=== PATIENT | female | born 1985 | race Caucasian/White ===

== ENCOUNTER 2016-03-26 12:08 | Emergency (ER) | payer OTHER ==
[~2016-03-26] VITALS: Ht 162.6 cm; Wt 51.3 kg
[~2016-03-26 12:08] MED LIST: 12 HOUR DECONG120 M1 PO; ALBUTEROL SULF8.5 GM IH; AMBIEN5 MG PO; BACLOFEN10 MG PO; BENADRYL25 MG PO; BIRTH CONTROL PO; DAY TIME COLD-177 ML PO; DOCUSATE SODIU100 MG PO; ENDOCET 5-3251 EACH PO; ESCITALOPRAM OX10 MG PO; FLEXERIL10 MG PO; FLINTSTONES CO1 EAC1 PO; HYDROXYZINE HCL50 MG PO; IBUPROFEN800 MG PO; IRON325 M1 PO; LIDODERM 5% P1 PATCH TD; LO-DOSE ASPIRIN81 M1 PO; LORAZEPAM0.5 MG PO; LORTAB 5-325 M1 EACH PO; MEDROL DOSEPAK4 MG PO; MELOXICAM15 MG PO; MOBIC15 MG PO; MONONESSA1 EACH PO; Motrin PO; NAPROXEN500 MG PO; NOHOMEMEDS; NYQUIL D COLD295 ML PO; OMEPRAZOLE40 M1 PO; PERCOCET 10/1 TABLET PO; PERCOCET 5/31 TABLET PO; PRENATAL COMPL1 EACH PO; PRENATAL TABLE1 EAC3 PO; PRILOSEC OTC20 M1 PO; PRILOSEC10 MG PO; PROMETHAZINE12.5 M1 PO; ROBITUSSIN COU237 ML PO; SODIUM CHLORIDE1 G1 PO; TESSALON200 MG PO; TYLENOL EXTRA500 MG PO; VENTOLIN HFA18 GM IH; ZOFRAN4 MG PO; Zofran PO
[2016-03-26] MEDS ORDERED: CLONAZEPAM1 MG PO (12:21)
[2016-03-26] MEDS ORDERED: VENTOLIN HFA18 GM IH (12:21)
[2016-03-26] MEDS ORDERED: SERTRALINE HCL50 MG PO (12:21)
[2016-03-26] MEDS ORDERED: ATARAX,VISTARIL50 MG PO (12:38)
[2016-03-26 13:15] VITALS: BP 153/93
== END 2016-03-26 13:16 | disposition home or self-care (01) ==
LOC: EME 12:08
DX: F41.1 Generalized anxiety disorder (principal); Z87.891 Personal history of nicotine dependence
CPT/HCPCS: 99281; 99283; Q0177

== ENCOUNTER 2016-03-28 23:42 | Emergency (ER) | payer OTHER ==
[~2016-03-28] VITALS: Ht 162.6 cm; Wt 50.8 kg
[~2016-03-28 23:42] MED LIST changes: +ATARAX,VISTARIL50 MG PO; +CLONAZEPAM1 MG PO; +SERTRALINE HCL50 MG PO
[2016-03-29] MEDS ORDERED: DAILY VALUE1 EACH PO (01:09)
[2016-03-29 01:16] LABS: HEMATOCRIT 36.4 % (36.0-46.0); MCH 30.2 PG (29.0-34.0); MCV 91.7 FL (83-99); MEAN PLAT.VOLUME 9.4 uM^3 (9.5-12.4); PLATELET COUNT 272 K/uL (156-360); RBC DIS.WIDTH-CV 15.2 % (11.8-14.6); RBC DIS.WIDTH-SD 49.6 % (39-53); RED BLOOD COUNT 3.97 M/uL (3.80-5.20); WHITE BLOOD COUNT 9.4 K/uL (4.1-10.2)
[2016-03-29 01:30] LABS: CHLORIDE 104 mEq/L (99-109); POTASSIUM 4.3 mEq/L (3.7-5.4); SODIUM 141 mEq/L (136-147)
[2016-03-29 01:32] LABS: GLUCOSE 120 mg/dL (70-99)
[2016-03-29 01:33] LABS: ANION GAP 12 MEQ/L (2-14)
[2016-03-29 01:36] LABS: GFR ESTIMATE (CALCULATED) > 59 mL/min/
[2016-03-29 01:37] LABS: UREA NITROGEN (BUN) 21 mg/dL (9-23)
[2016-03-29 01:38] LABS: CREATINE KINASE 18 IU/L (1-294)
[2016-03-29 01:44] LABS: QUANTITATIVE HCG < 4.0 MIU/ML
[2016-03-29] MEDS ORDERED: NAPROSYN500 MG PO (02:24)
[2016-03-29 02:35] VITALS: BP 110/52
== END 2016-03-29 02:40 | disposition home or self-care (01) ==
LOC: EME 23:42 → RME 23:42
PROVIDERS: Physician Assistant
DX: M79.7 Fibromyalgia (principal); Z87.891 Personal history of nicotine dependence
CPT/HCPCS: 80048; 82550; 84702; 85027; 99281; 99284; J1885

== ENCOUNTER 2016-05-18 02:25 | Emergency (ER) | payer OTHER ==
[~2016-05-18] VITALS: Ht 162.6 cm; Wt 51.1 kg
[~2016-05-18 02:25] MED LIST changes: +DAILY VALUE1 EACH PO; +NAPROSYN500 MG PO
[2016-05-18] MEDS ORDERED: ZOLOFT50 MG PO (02:44)
[2016-05-18] MEDS ORDERED: XANAX1 MG PO (02:44)
[2016-05-18] MEDS ORDERED: ALPRAZOLAM1 MG PO (02:48)
[2016-05-18] MEDS ORDERED: ROPINIROLE HCL1 MG PO (02:49)
[2016-05-18 03:14] VITALS: BP 118/90
[2016-05-18] MEDS ORDERED: ULTRACET1 TABLET PO (17:20)
[2016-05-18] MEDS ORDERED: INDOCIN50 MG PO (17:20)
[2016-05-18] MEDS ORDERED: VALIUM2 MG PO (17:20)
== END 2016-05-18 03:21 | disposition home or self-care (01) ==
LOC: EME 02:25
DX: F41.1 Generalized anxiety disorder (principal); T43.506A Underdosing of unspecified antipsychotics and neuroleptics, initial encounter; Z91.14 Patient's other noncompliance with medication regimen; Z87.891 Personal history of nicotine dependence
CPT/HCPCS: 93005; 99281; 99284

== ENCOUNTER 2016-05-18 13:56 | Emergency (ER) | payer OTHER ==
[~2016-05-18] VITALS: Ht 162.6 cm; Wt 60.0 kg
[~2016-05-18 13:56] MED LIST changes: +ALPRAZOLAM1 MG PO; +ROPINIROLE HCL1 MG PO; +XANAX1 MG PO; +ZOLOFT50 MG PO
[2016-05-18] MEDS ORDERED: INDOCIN50 MG PO (17:20)
[2016-05-18] MEDS ORDERED: VALIUM2 MG PO (17:20)
[2016-05-18] MEDS ORDERED: ULTRACET1 TABLET PO (17:20)
[2016-05-18 17:44] VITALS: BP 120/61
== END 2016-05-18 17:45 | disposition home or self-care (01) ==
LOC: EME 13:56
DX: S39.012A Strain of muscle, fascia and tendon of lower back, initial encounter (principal); S16.1XXA Strain of muscle, fascia and tendon at neck level, initial encounter; S70.01XA Contusion of right hip, initial encounter; R51 Headache; M25.561 Pain in right knee; M25.562 Pain in left knee; V49.50XA Passenger injured in collision with unspecified motor vehicles in traffic accident, initial encounter; R11.0 Nausea; F17.200 Nicotine dependence, unspecified, uncomplicated
CPT/HCPCS: 72050; 72100; 72125; 73502; 99281; 99284; J3010

== ENCOUNTER 2016-07-03 12:26 | Observation (INO) | payer OTHER ==
[~2016-07-03] VITALS: Ht 162.6 cm; Wt 50.3 kg
[~2016-07-03 12:26] MED LIST changes: +INDOCIN50 MG PO; +ULTRACET1 TABLET PO; +VALIUM2 MG PO
[2016-07-03 15:17] LABS: HEMATOCRIT 42.3 % (36.0-46.0); MCH 28.9 PG (29.0-34.0); MCHC 32.4 G/DL (30.0-36.0); MCV 89.2 FL (83-99); MEAN PLAT.VOLUME 9.7 uM^3 (9.5-12.4); PLATELET COUNT 348 K/uL (156-360); RBC DIS.WIDTH-CV 14.7 % (11.8-14.6); RBC DIS.WIDTH-SD 48.7 % (39-53); RED BLOOD COUNT 4.74 M/uL (3.80-5.20); WHITE BLOOD COUNT 6.3 K/uL (4.1-10.2)
[2016-07-03 15:32] LABS: CHLORIDE 114 mEq/L (99-109); POTASSIUM 3.7 mEq/L (3.7-5.4); SODIUM 141 mEq/L (136-147)
[2016-07-03 15:33] LABS: GLUCOSE 82 mg/dL (70-99)
[2016-07-03 15:35] LABS: ANION GAP 9 MEQ/L (2-14)
[2016-07-03 15:37] LABS: GFR ESTIMATE (CALCULATED) > 59 mL/min/
[2016-07-03 15:38] LABS: UREA NITROGEN (BUN) 13 mg/dL (9-23)
[2016-07-03] MEDS ORDERED: OMEPRAZOLE40 M1 PO (16:46)
[2016-07-03 18:00] VITALS: BP 113/62
[2016-07-03 21:00] VITALS: BP 107/61
[2016-07-03 23:46] VITALS: BP 106/61
[2016-07-04 06:29] LABS: HEMATOCRIT 38.6 % (36.0-46.0); MCH 29.1 PG (29.0-34.0); MCHC 32.6 G/DL (30.0-36.0); MCV 89.1 FL (83-99); MEAN PLAT.VOLUME 9.9 uM^3 (9.5-12.4); PLATELET COUNT 310 K/uL (156-360); RBC DIS.WIDTH-CV 14.6 % (11.8-14.6); RBC DIS.WIDTH-SD 47.1 % (39-53); RED BLOOD COUNT 4.33 M/uL (3.80-5.20)
[2016-07-04 06:57] LABS: ANION GAP 11 MEQ/L (2-14); CHLORIDE 110 MEQ/L (99-109); GFR ESTIMATE (CALCULATED) > 59 mL/min/; GLUCOSE 102 mg/dL (70-99); SAMPLE HEMOLYSIS CHECK 0; SAMPLE ICTERIC CHECK 0; SAMPLE LIPEMIA CHECK 0; SODIUM 139 MEQ/L (136-147); UREA NITROGEN (BUN) 16 mg/dL (9-23)
[2016-07-04 07:06] LABS: WHITE BLOOD COUNT 10.8 K/uL (4.1-10.2)
[2016-07-04 08:30] VITALS: BP 124/77
[2016-07-04 19:31] VITALS: BP 105/76
[2016-07-05 04:08] VITALS: BP 121/59
[2016-07-05 08:27] VITALS: BP 127/71
[2016-07-05 11:28] VITALS: BP 119/75
[2016-07-05 15:41] VITALS: BP 125/77
[2016-07-05] MEDS ORDERED: SERTRALINE HCL50 MG PO (16:37)
[2016-07-05] MEDS ORDERED: NICOTINE PATCH1 EAC1 TD (16:37)
[2016-07-05] MEDS ORDERED: BUSPAR10 MG PO (16:38)
[2016-07-05] MEDS ORDERED: SUMATRIPTAN SUC25 MG PO (16:38)
[2016-07-05] MEDS ORDERED: GABAPENTIN100 MG PO (16:45)
== END 2016-07-05 17:59 | disposition home or self-care (01) ==
LOC: EME 12:26 → 5WEST 16:38 → EDOF 16:38 → 5WEST 17:50
PROVIDERS: Emergency Medicine; Hospitalist
DX: R51 Headache (principal); G43.909 Migraine, unspecified, not intractable, without status migrainosus; M51.17 Intervertebral disc disorders with radiculopathy, lumbosacral region; K21.9 Gastro-esophageal reflux disease without esophagitis; F41.1 Generalized anxiety disorder; F32.9 Major depressive disorder, single episode, unspecified; F17.200 Nicotine dependence, unspecified, uncomplicated; G89.29 Other chronic pain; M43.17 Spondylolisthesis, lumbosacral region; M79.7 Fibromyalgia; G25.81 Restless legs syndrome; M25.551 Pain in right hip; R93.7 Abnormal findings on diagnostic imaging of other parts of musculoskeletal system
CPT/HCPCS: 70450; 70551; 72148; 73502; 73721; 80048; 85027; 99281; 99285; G0378; G8978 GP CM; G8979 CJ; G8987 CK; G8988 CI; J1100; J1170; J1200; J1630; J1644; J1885; J2270; J2405; J2765; J7030

== ENCOUNTER 2016-11-12 01:54 | Emergency (ER) | payer OTHER ==
[~2016-11-12] VITALS: Ht 162.6 cm; Wt 55.4 kg
[~2016-11-12 01:54] MED LIST changes: +BUSPAR10 MG PO; +GABAPENTIN100 MG PO; +NICOTINE PATCH1 EAC1 TD; +SUMATRIPTAN SUC25 MG PO
[2016-11-12] MEDS ORDERED: REQUIP0.25 MG PO (02:10)
[2016-11-12] MEDS ORDERED: MOTRIN800 MG PO (02:11)
[2016-11-12 02:49] LABS: BASOPHIL COUNT 0.1 K/uL (0-0.1); EOSINOPHIL (%) 2.1 % (0-5); EOSINOPHIL COUNT 0.2 K/uL (0-0.3); HEMATOCRIT 44.3 % (36.0-46.0); IMMATURE GRANULOCYTE (%) 0.3 % (0.0-0.7); INSTRUMENT ABS NEUTROPHIL CT 5.6 K/uL; LYMPHOCYTE COUNT 3.8 K/uL (1.0-2.8); MCH 29.8 PG (29.0-34.0); MCHC 32.7 G/DL (30.0-36.0); MCV 91.2 FL (83-99); MONOCYTE (%) 7.8 % (3-12); MONOCYTE COUNT 0.8 K/uL (0-0.8); NEUTROPHIL (%) 53.1 % (45-76); NEUTROPHIL COUNT 5.6 K/uL (1.8-6.4); PLATELET COUNT 297 K/uL (156-360); RBC DIS.WIDTH-CV 14.9 % (11.8-14.6); RBC DIS.WIDTH-SD 50.4 % (39-53); RED BLOOD COUNT 4.86 M/uL (3.80-5.20); WHITE BLOOD COUNT 10.5 K/uL (4.1-10.2)
[2016-11-12 03:01] LABS: CHLORIDE 105 mEq/L (99-109); POTASSIUM 3.6 mEq/L (3.7-5.4); SODIUM 142 mEq/L (136-147)
[2016-11-12 03:03] LABS: GLUCOSE 54 mg/dL (70-99)
[2016-11-12 03:04] LABS: ANION GAP 12 MEQ/L (2-14)
[2016-11-12 03:06] LABS: SERUM ETHYL ALCOHOL < 10 mg/dL
[2016-11-12 03:07] LABS: GFR ESTIMATE (CALCULATED) > 59 mL/min/
[2016-11-12 03:08] LABS: UREA NITROGEN (BUN) 14 mg/dL (9-23)
[2016-11-12 03:10] LABS: LIPASE 14 U/L (1.0-51.0)
[2016-11-12 03:54] LABS: QUANTITATIVE HCG < 4.0 MIU/ML
[2016-11-12] MEDS ORDERED: NAPROSYN500 MG PO (05:27)
[2016-11-12 06:00] VITALS: BP 139/104
== END 2016-11-12 06:02 | disposition home or self-care (01) ==
LOC: EME → EDBD 01:54 → EME 01:54
PROVIDERS: Emergency Medicine
DX: T14.8 Other injury of unspecified body region (principal); Z76.5 Malingerer [conscious simulation]; F41.1 Generalized anxiety disorder; W10.9XXD Fall (on) (from) unspecified stairs and steps, subsequent encounter; Y92.009 Unspecified place in unspecified non-institutional (private) residence as the place of occurrence of the external cause; R68.84 Jaw pain; M79.672 Pain in left foot; M25.562 Pain in left knee; R10.9 Unspecified abdominal pain; M79.7 Fibromyalgia; J45.909 Unspecified asthma, uncomplicated; Z87.442 Personal history of urinary calculi; F17.200 Nicotine dependence, unspecified, uncomplicated
CPT/HCPCS: 70450; 70486; 71260; 72125; 73564; 73600; 73630; 74177; 80048; 81003; 83690; 84702; 85025; 99281; 99285; G0480; J1885; J2060; J2405; J3010; J7030; Q0177

== ENCOUNTER 2017-04-25 07:24 | Emergency (ER) | payer OTHER ==
[~2017-04-25] VITALS: Ht 162.6 cm; Wt 49.0 kg
[~2017-04-25 07:24] MED LIST changes: +MOTRIN800 MG PO; +REQUIP0.25 MG PO
[2017-04-25 07:54] LABS: HEMATOCRIT 40.4 % (36.0-46.0); HEMOGLOBIN 13.8 G/DL (11.9-15.5); MCH 30.7 PG (29.0-34.0); MCHC 34.2 G/DL (30.0-36.0); MCV 89.8 FL (83-99); PLATELET COUNT 307 K/uL (156-360); RBC DIS.WIDTH-SD 42.7 % (39-53); WHITE BLOOD COUNT 8.2 K/uL (4.1-10.2)
[2017-04-25 08:02] LABS: CHLORIDE 107 mEq/L (99-109); POTASSIUM 4.2 mEq/L (3.7-5.4); SODIUM 140 mEq/L (136-147)
[2017-04-25 08:04] LABS: GLUCOSE 78 mg/dL (70-99)
[2017-04-25 08:07] LABS: CREATININE 0.9 mg/dL (0.6-1.3); GFR ESTIMATE (CALCULATED) > 59 mL/min/
[2017-04-25 08:08] LABS: UREA NITROGEN (BUN) 9 mg/dL (9-23)
[2017-04-25 08:15] LABS: TROP-I INTERPRETATION NEGATIVE; TROPONIN-I < 0.01 ng/mL (0.0-0.30)
[2017-04-25 12:37] VITALS: BP 116/72
== END 2017-04-25 12:38 | disposition home or self-care (01) ==
LOC: EME 07:24
DX: R07.9 Chest pain, unspecified (principal); F43.9 Reaction to severe stress, unspecified; F17.200 Nicotine dependence, unspecified, uncomplicated; J45.909 Unspecified asthma, uncomplicated; M79.7 Fibromyalgia; F32.9 Major depressive disorder, single episode, unspecified; F41.9 Anxiety disorder, unspecified; Z88.5 Allergy status to narcotic agent
CPT/HCPCS: 71046; 80048; 84484; 85027; 93005; 99281; 99284

== ENCOUNTER 2017-09-02 11:47 | Emergency (ER) | payer SELFPAY ==
[~2017-09-02] VITALS: Ht 162.6 cm; Wt 41.0 kg
[2017-09-02 12:41] LABS: HEMATOCRIT 44.1 % (36.0-46.0); HEMOGLOBIN 15.3 G/DL (11.9-15.5); MCH 30.1 PG (29.0-34.0); MCHC 34.7 G/DL (30.0-36.0); MCV 86.8 FL (83-99); PLATELET COUNT 283 K/uL (156-360); RED BLOOD COUNT 5.08 M/uL (3.80-5.20); WHITE BLOOD COUNT 6.3 K/uL (4.1-10.2)
[2017-09-02 12:54] LABS: D-DIMER ELISA < 150.00 ng/mLDDU (<230)
[2017-09-02 12:55] LABS: ALBUMIN 4.6 g/dL (3.2-4.8); CHLORIDE 103 mEq/L (99-109); POTASSIUM 4.2 mEq/L (3.7-5.4); SODIUM 136 mEq/L (136-147)
[2017-09-02 12:58] LABS: GLUCOSE 86 mg/dL (70-99); TOTAL PROTEIN 7.8 g/dL (6.4-8.3)
[2017-09-02 12:59] LABS: TOTAL BILIRUBIN 0.7 mg/dL (0.0-1.0)
[2017-09-02] MEDS ORDERED: ATIVAN1 MG PO (12:59)
[2017-09-02 13:01] LABS: ALKALINE PHOSPHATASE 92 IU/L (3-129); CREATININE 0.8 mg/dL (0.6-1.3); GFR ESTIMATE (CALCULATED) > 59 mL/min/
[2017-09-02 13:02] LABS: UREA NITROGEN (BUN) 12 mg/dL (9-23)
[2017-09-02 13:03] LABS: AST (GOT) 32 IU/L (2-34)
[2017-09-02 13:04] LABS: ALT (GPT) 26 IU/L (3-49)
[2017-09-02 13:05] LABS: TROP-I INTERPRETATION NEGATIVE; TROPONIN-I < 0.01 ng/mL (0.0-0.30)
[2017-09-02 15:02] VITALS: BP 122/78
== END 2017-09-02 15:09 | disposition home or self-care (01) ==
LOC: EME 11:47
PROVIDERS: Emergency Medicine Emergency Medical Services
DX: R07.89 Other chest pain (principal); F41.9 Anxiety disorder, unspecified; R20.2 Paresthesia of skin; M79.7 Fibromyalgia; J45.909 Unspecified asthma, uncomplicated; F32.9 Major depressive disorder, single episode, unspecified; F17.200 Nicotine dependence, unspecified, uncomplicated; Z90.710 Acquired absence of both cervix and uterus; Z87.442 Personal history of urinary calculi; Z88.5 Allergy status to narcotic agent
CPT/HCPCS: 71045; 80053; 84484; 85027; 85379; 93005; 99281; 99285